=== PATIENT | female | born 1960 | race Caucasian/White ===

== ENCOUNTER 2017-11-26 18:00 | Emergency (ER) | payer BC, SELFPAY ==
[2017-11-26 18:05] VITALS: BP 170/97; PULSE 114; RESP 18; TEMP 36.4; O2SAT 100
--- NOTE | 2017-11-26 18:19 | ED.GENADUL_ITS ---
Discharge Plan Disposition Patient Disposition: HOME Condition: Good Discharge Details Chief Complaint: Cellulitis Clinical Impression: Cat scratch of face Primary Care Provider: Jaun Longoria ED Provider: Blayne Danielson Home Meds and New Rx's Prescriptions: New azithromycin 250 mg tablet See Label Instructions .ROUTE .COMPLEX Qty: 6 RF: 0 Continue multivitamin [Daily Vitamin] 1 EACH tablet 1 ea PO DAILY RF: 0 ibuprofen 800 MG tablet 800 mg PO TID RF: 0 coenzyme Q10 10 MG capsule 1 tab PO DAILY RF: 0 cyanocobalamin (vitamin B-12) [Vitamin B-12] 1,000 MCG tablet 1,000 mcg PO DAILY RF: 0 calcium carbonate-vitamin D3 1 EACH tablet 1 ea PO BID RF: 0 potassium 99 MG tablet 99 mg PO DAILY RF: 0 vitamin E 400 UNIT capsule 400 unit PO daily prn RF: 0 loratadine 10 MG tablet 10 mg PO DAILY Qty: 90 RF: 4 vitamin B complex 1 EACH capsule 1 ea PO DAILY RF: 0 ginkgo biloba leaf extract 120 MG capsule 2 tab PO DAILY RF: 0 triprolidine-pseudoephedrine [Wal-Act D Cold and Allergy] 1 EACH tablet 1 tab-cap PO TID PRN RF: 0 docosahexanoic acid 100 MG capsule 100 mg PO DAILY RF: 0 ferrous sulfate 325 MG tablet 325 mg PO BID Qty: 180 RF: 4 magnesium 250 MG tablet 250 mg PO DAILY Qty: 90 RF: 3 lisinopril-hydrochlorothiazide 1 EACH tablet 1 tab-cap PO DAILY Qty: 90 RF: 3 cyclobenzaprine 10 MG tablet 10 mg PO TID PRNQty: 270 RF: 1 omeprazole 40 MG capsule,delayed release(DR/EC) 40 mg PO BID Qty: 180 RF: 4 paroxetine HCl 40 MG tablet 40 mg PO DAILY Qty: 90 RF: 4 trazodone 50 MG tablet 50 mg PO HS Qty: 90 RF: 4 Discharge Instructions Instructions: Cat Scratch Disease (ED) Additional Instructions: Please take azithromycin as prescribed for cat scratch disease. Please follow- up with regular doctor next week for. call on Wednesday for an appointment. Return to the emergency department for worsening signs of infection or any other acute concerns. Medical Decision Making MDM Narrative Medical decision making narrative: Pleasant 57-year-old female who has a swollen upper lip following cat scratch at home. She is at risk for Bartonella infection. Given initial dose of Bactrim, review of records reveal high dose of VICTORIA inhibitor, therefore was switched to Azithromycin. Pt is stable appropriate appropriate for outpatient management. I discussed return precautions to the ER with her. HPI - General Adult General Mode of arrival: ambulatory . Date/Time Provider Initiated Documentation: 11/26/17 18:00 . Limitations to Documentation: no limitations . Information obtained by: patient . HPI Narrative: Upper lip infection. This is a 57-year-old female who has a number of immunized cats. She was scratched in her upper lip by a cat last night on the inner mucosal surface. Over the course of the day today she developed the gradual onset of mild to moderate upper lip swelling and mild discomfort. It is nonradiating, constant, without significant exacerbating or ameliorating factors. She has had no difficulty swallowing or speaking. No swelling within the mouth. She states that she requires a tetanus booster. Related Data Home Medications Medication Instructions Recorded Confirmed calcium carbonate-vitamin D3 1 ea PO BID 06/18/14 coenzyme Q10 1 tab PO DAILY 06/18/14 cyanocobalamin (vitamin B-12) 1,000 mcg PO DAILY 06/18/14 [Vitamin B-12] ginkgo biloba leaf extract 2 tab PO DAILY 06/18/14 ibuprofen 800 mg PO TID tab-cap 06/18/14 loratadine 10 mg PO DAILY #90 tab-cap 06/18/14 multivitamin [Daily Vitamin] 1 ea PO DAILY 06/18/14 potassium 99 mg PO DAILY 06/18/14 vitamin B complex 1 ea PO DAILY 06/18/14 11/26/17 vitamin E 400 unit PO daily prn 06/18/14 11/26/17 docosahexanoic acid 100 mg PO DAILY 06/05/15 triprolidine-pseudoephedrine 1 tab-cap PO TID PRN tab-cap 06/05/15 11/26/17 [Wal-Act D Cold and Allergy] Previous Rx's Medication Instructions Recorded azithromycin See Label Instructions .ROUTE 11/26/17 .COMPLEX #6 tab Allergies Allergy/AdvReac Type Severity Reaction Status Date / Time No Known Allergies Allergy Unverified 01/06/17 15:14 General Stated Complaint: Cellulitis LILA: 3 Review of Systems Review of Systems 6systems reviewed, otherwise no PFSH Family History Mother Diabetes Essential hypertension Cerebrovascular accident Father Essential hypertension Brother Essential hypertension Grandfather No problems noted. Grandfather Diabetes Essential hypertension Heart disease Cerebrovascular accident Grandmother Diabetes Cerebrovascular accident Grandmother Personal history of malignant neoplasm Social History Smoking/Tobacco Use Status: Never Surgical History Diagnostic Laproscopy LUMBAR DISC SURGERY Tonsillectomy and adenoidectomy Exam Const General: cooperative, healthy appearing and comfortable Orientation: alert, awake and oriented x3 HENMT Head: normal to inspection, normocephalic and atraumatic Face and sinus: other (Upper lip mildly swollen without asymmetry. No clear lacerations. No fluctuance) Neck Neck: normal visual inspection and full ROM Chest Chest: normal inspection of the chest and normal palpation of entire chest wall Resp Effort & Inspection: normal respiratory effort and able to speak in complete sentences Auscultation: clear to auscultation bilaterally Cardio Rate: regular rate Rhythm: regular rhythm Skin Rashes: no rashes Trauma: no lacerations or abrasions Neuro General: alert, awake and oriented x3 Extrem General: normal to inspection and full ROM Course Vital Signs Temperature 36.4 C L 11/26/17 18:05 Pulse 114 H 11/26/17 18:05 Respiratory Rate 18 11/26/17 18:05 Blood Pressure 170/97 H 11/26/17 18:05 Pulse Oximetry 100 11/26/17 18:05 Temperature 36.4 C L 11/26/17 18:05 Pulse 114 H 11/26/17 18:05 Respiratory Rate 18 11/26/17 18:05 Blood Pressure 170/97 H 11/26/17 18:05 Pulse Oximetry 100 11/26/17 18:05
[2017-11-26] MEDS: Sulfameth/Trimeth DS TAB 1 TAB (18:27)
[2017-11-26 18:34] VITALS: BP 170/97; PULSE 114; RESP 18; TEMP 36.4; O2SAT 100
== END 2017-11-26 18:34 | disposition home or self-care (01) ==
LOC: ER 18:48
PROVIDERS: Emergency Provider Emergency Medicine; PCP Family Medicine
DX: S00.81XA Abrasion of other part of head, initial encounter (principal); W55.03XA Scratched by cat, initial encounter; I10 Essential (primary) hypertension
CPT/HCPCS: 90471; 99284; 99283

== ENCOUNTER 2021-01-16 02:09 | Outpatient (CLI) | payer BC, SELFPAY ==
[2021-01-16 15:50] LABS: Anion Gap 10.8 mmol/L (3-11); BUN 12 mg/dL (7-18); CO2 26.2 mmol/L (21.0-32.0); CREATININE 1.1 mg/dL (0.55-1.02); Calcium 9.5 mg/dL (8.5-10.1); Calculated LDL 166 mg/dL (<100); Chloride 104 mmol/L (98-107); Cholesterol 259 mg/dL (<200); Estimated GFR 51.02 (mL/min/1.73m2); Glucose 91 mg/dL (74-106); HDL Cholesterol 58 mg/dL (40-60); Potassium 3.9 mmol/L (3.5-5.1); Sodium 141 mmol/L (136-145); Triglyceride 176 mg/dL (<150)
== END 2021-01-16 02:10 | disposition home or self-care (01) ==
LOC: LBO 02:09
PROVIDERS: PCP Family Medicine; Visit Provider Family Medicine
DX: Z00.00 Encounter for general adult medical examination without abnormal findings (principal); I10 Essential (primary) hypertension
CPT/HCPCS: 36415; 80048; 80061

== ENCOUNTER 2021-04-23 16:23 | Outpatient (REF) | payer BC, SELFPAY ==
--- NOTE | 2021-04-23 15:45 | PAPFT_PTH ---
PATIENT: Anika Schroeder LOC: [facility] U#:[id number] AGE/SX: 60/F ROOM: RE04/23/[address]: Desiree Bello : 1960 BED: DIS: 04/23/2021 SPEC #: [id number] RECD: 04/23/21 18:24 STATUS: RYAN REJulia #: [id number] CABRERA: 04/23/21 15:[address]: Desiree Bello DEPT: [facility] Cytology RECD BY: Beata Diza Tissues: 1 - CX/ENDOCX FOR PAP SMEARS Procedures: PAP THIN PREP/UVM Screening HPV DNA PROBE Comments: [id number]
== END 2021-04-23 16:24 | disposition home or self-care (01) ==
LOC: LBN 16:23
PROVIDERS: PCP Family Medicine; Visit Provider Family Medicine
DX: Z12.4 Encounter for screening for malignant neoplasm of cervix (principal); Z11.51 Encounter for screening for human papillomavirus (HPV)
CPT/HCPCS: 88142; 87624

== ENCOUNTER 2021-05-15 00:53 | Outpatient (CLI) | payer BC, SELFPAY ==
--- NOTE | 2021-05-15 07:45 | DI.MAMMO_ITS ---
Exam(s) MAMMO SCREENING EXAM: MAMMO SCREENING CLINICAL HISTORY: screening,z12.39. TECHNIQUE: Bilateral full field digital CC and MLO mammographic images were obtained with 3D tomosyn thesis and utilizing computer aided detection (CAD). COMPARISON: None. Last mammogram was apparently 2008 and not available. FINDINGS: There are no CAD designations In the right breast there is an asymmetric density-possible nodule measuring 3 x 3 millimeters locate d 5 cm in from the nipple on the 3D cc imaging. In the left breast there is asymmetric density similar location also located 5 cm in from nipple. Po ssibly significant. No malignant-appearing microcalcification groups is region nor elsewhere in [place] [address] There is no significant architectural distortion nor skin thickening-retraction. IMPRESSION: Bilateral areas which require spot compression and possible ultrasound. BI-RADS Category 0 - Assessment Incomplete: Need additional imaging evaluation Breast Density - Category B - Scattered areas of fibroglandular density Breast density Category C or D implies that the patient has dense breast tissue. Dense breast tissue can make it harder to find cancer on a mammogram. Dense breast tissue is also associated with an incr eased risk of breast cancer. This information about the result of the mammogram report was provided to the patient to raise their awareness. Use this report when you speak with the patient about their risks for breast cancer, which includes their family history. At that time, you may recommend additional screening tests (Ultrasoun d or MRI) as these tests may add significant information. A negative radiographic report should not delay biopsy if a dominant or clinically suspicious mass is present. Up to ten percent of cancers are not identified on mammography. A negative report may reinforce clinical impression. Adenosis and dense breasts may obscure an underlying neoplasm. False positive reports average 6 to 10%. Patient will receive a letter notifying them of these results.
== END 2021-05-15 01:13 ==
PROVIDERS: PCP Family Medicine; Visit Provider Family Medicine
DX: Z12.31 Encounter for screening mammogram for malignant neoplasm of breast (principal); R92.8 Other abnormal and inconclusive findings on diagnostic imaging of breast
CPT/HCPCS: 77063; 77067

== ENCOUNTER 2021-05-30 01:48 | Outpatient (CLI) | payer BC, SELFPAY ==
--- NOTE | 2021-05-30 | DI.MAMMO_ITS ---
Exam(s) MAMMO SCREEN CALL BACK BI EXAM: MAMMO SCREEN CALL BACK BI CLINICAL HISTORY: ASYMMETRIC DENSITY BILAT BREAST. TECHNIQUE: Bilateral spot mammographic images obtained with 3D tomosynthesisand utilizing computer a ided detection (CAD). . We have now found a prior mammogram from October 2008 for compared COMPARISON: October 2008. FINDINGS: Additional mammographic views performed todayrender this area less concerning.Appearance is similar t o the 2008 mammogram. IMPRESSION: Stable benign-appearing bilateral findings. No radiographic evidence of malignancy Appropriate follow-up is to keep this patient on a yearly mammogram schedule. The patient was informed of these findings and recommendations prior to leaving the department today. BI-RADS Category 2 - Benign Findings Breast Density - Category B - Scattered areas of fibroglandular density Breast density Category C or D implies that the patient has dense breast tissue. Dense breast tissue can make it harder to find cancer on a mammogram. Dense breast tissue is also associated with an incr eased risk of breast cancer. This information about the result of the mammogram report was provided to the patient to raise their awareness. Use this report when you speak with the patient about their risks for breast cancer, which includes their family history. At that time, you may recommend additional screening tests (Ultrasoun d or MRI) as these tests may add significant information. A negative radiographic report should not delay biopsy if a dominant or clinically suspicious mass is present. Up to ten percent of cancers are not identified on mammography. A negative report may reinforce clinical impression. Adenosis and dense breasts may obscure an underlying neoplasm. False positive reports average 6 to 10%. Patient will receive a letter notifying them of these results.
== END 2021-05-30 02:08 ==
PROVIDERS: PCP Family Medicine; Visit Provider Family Medicine
DX: Z12.31 Encounter for screening mammogram for malignant neoplasm of breast (principal)
CPT/HCPCS: 77063; 77067

== ENCOUNTER 2021-08-15 01:49 | Outpatient (CLI) | payer BC, SELFPAY ==
[2021-08-15 15:38] LABS: Abs Immature Grans 0.02 10^3/uL (0.0-0.06); Absolute Basophil Count 0.05 10^3/uL (0.0-0.2); Absolute Lymphocyte Count 2.41 10^3/uL (1.2-3.4); Absolute Monocyte Count 0.44 10^3/uL (0.1-0.8); Absolute Neutrophil Count 4.63 10^3/uL (1.2-6.7); Basophils % 0.6; Eosinophils % 6.2; HCT 40.1 % (36.0-46.0); HGB 13.3 g/dL (11.2-15.7); Immature Grans % 0.2; Lymphocytes % 29.9; MCH 30.8 pg (27.0-33.0); MCHC 33.2 % (32.0-36.0); MCV 93 fL (80-95); MPV 10.2 fL (8.0-11.0); Monocytes % 5.5; Neutrophils % 57.6; Platelet Count 338 10^3/uL (130-400); RBC 4.32 10^6/uL (3.93-5.22); RDW 12.2 % (11.7-14.6); RDW-SD 41.8 fL; WBC 8.05 10^3/uL (4.4-10.8)
[2021-08-15 16:29] LABS: COMMENT (LAB VIEW ONLY) 226.95 mg/dL; Microalb ug/mg Crea 7.9 ug/mg Cr
[2021-08-15 16:41] LABS: ALT 22 U/L (14-59); AST 18 U/L (15-37); Albumin 4.3 g/dL (3.4-5.0); Alkaline Phosphatase 79 U/L (46-116); Anion Gap 15.2 mmol/L (3-11); BUN 12 mg/dL (7-18); Bilirubin, Direct 0.1 mg/dL (0.0-0.2); Bilirubin, Total 0.3 mg/dL (0.2-1.0); CO2 22.8 mmol/L (21.0-32.0); CREATININE 1.3 mg/dL (0.55-1.02); Calcium 9.8 mg/dL (8.5-10.1); Chloride 103 mmol/L (98-107); Estimated GFR 41.92 (mL/min/1.73m2); Glucose 92 mg/dL (74-106); Potassium 3.6 mmol/L (3.5-5.1); Sodium 141 mmol/L (136-145); TSH (W/Ref FT4) 1.76 uIU/mL (0.36-3.74); Total Protein 7.4 g/dL (6.4-8.2)
[2021-08-15 21:52] LABS: Rheumatoid Factor <8.6 IU/mL (<12.0)
[2021-08-18 10:15] LABS: Hepatitis C Ab w Rflx HCV PCR Negative (Negative)
== END 2021-08-15 01:50 | disposition home or self-care (01) ==
LOC: LBO 01:50
PROVIDERS: PCP Family Medicine; Visit Provider Family Medicine
DX: Z00.00 Encounter for general adult medical examination without abnormal findings (principal); E03.9 Hypothyroidism, unspecified; I10 Essential (primary) hypertension; R53.83 Other fatigue; N18.31 Chronic kidney disease, stage 3a; F10.20 Alcohol dependence, uncomplicated; Z11.59 Encounter for screening for other viral diseases; M19.041 Primary osteoarthritis, right hand; M19.042 Primary osteoarthritis, left hand
CPT/HCPCS: 36415; 80053; 80076; 86803; 82043; 82570; 84443; 85025; 86431

== ENCOUNTER 2023-05-14 19:57 | Outpatient (REF) | payer BC, SELFPAY ==
[2023-05-14 21:37] LABS: ALT 23 U/L (14-59); AST 15 U/L (15-37); Albumin 3.8 g/dL (3.4-5.0); Alkaline Phosphatase 85 U/L (46-116); BUN 13 mg/dL (7-18); Bilirubin, Total 0.2 mg/dL (0.2-1.0); Calcium 9.2 mg/dL (8.5-10.1); Calculated LDL 134 mg/dL (<100); Chloride 106 mmol/L (98-107); Cholesterol 213 mg/dL (<200); Estimated GFR 64.49 (mL/min/1.73m2); Glucose 100 mg/dL (74-106); HDL Cholesterol 69 mg/dL (40-60); Potassium 3.9 mmol/L (3.5-5.1); Sodium 142 mmol/L (136-145); Total Protein 6.8 g/dL (6.4-8.2); Triglyceride 51 mg/dL (<150)
[2023-05-14 22:02] LABS: Vitamin D 25 Total 47.3 ng/mL (30-100)
== END 2023-05-14 19:58 | disposition home or self-care (01) ==
LOC: LBN 19:57
PROVIDERS: PCP Family Medicine; Visit Provider Family Medicine
DX: Z00.00 Encounter for general adult medical examination without abnormal findings (principal); I10 Essential (primary) hypertension; N18.31 Chronic kidney disease, stage 3a; Z13.6 Encounter for screening for cardiovascular disorders
CPT/HCPCS: 80053; 80061; 82306

== ENCOUNTER 2024-07-01 16:27 | Emergency (ER) | payer BC, SELFPAY ==
[2024-07-01 16:32] VITALS: BP 136/78; PULSE 89; RESP 18; TEMP 36.6; O2SAT 98
--- NOTE | 2024-07-01 16:45 | RT.EKG_ITS ---
APPROVED REPORT Exam: Resting ECG Reason for Exam: Chest pain Patient Location: E HR:67 bpm ECG Measurements Heart Rate 67 AXIS VA 136 P 59 QRSd 103 QRS -33 QT 436 T 49 QTc 460 Conclusion Sinus rhythm...normal P axis, V-rate 60- 99 Left axis deviation...QRS axis (-30,-90) Probable lateral infarct, old...Q>35mS, abnormal ST-T, V5-6 I aVL
--- NOTE | 2024-07-01 16:45 | DI.RAD_ITS ---
Exam(s) XR SHOULDER RT COMPLETE 2+V EXAM: XR SHOULDER RT COMPLETE 2+V CLINICAL HISTORY: right shoulder pain. TECHNIQUE: 2D digital imaging was performed. Five views. COMPARISON: No exams were available for comparison FINDINGS: BONES: No acute fracture is present. No bony destructive lesion is seen. Mild spurring at the greate r tuberosity. JOINTS: No dislocation present. Mild degenerative changes of the AC joint. SOFT TISSUE: Normal. IMPRESSION: No acute abnormality. DATA REPOSITORY: RADIATION DOSE DELIVERED:
--- NOTE | 2024-07-01 16:45 | DI.RAD_ITS ---
Exam(s) XR CHEST 2V PA LATERAL EXAM: XR CHEST 2V PA LATERAL CLINICAL HISTORY: chest pain TECHNIQUE: 2D digital imaging was performed. Two views. COMPARISON: No exams were available for comparison FINDINGS: HEART: Normal size. Aorta: Not dilated. PULMONARY VASCULATURE: Normal. MEDIASTINUM: Unremarkable. LUNGS: No infiltrate or pulmonary edema. Mild fibrotic changes. PLEURAL SPACE: No pleural effusion or pneumothorax. BONE:Osteophytes in the thoracic spine. SOFT TISSUES: Unremarkable. IMPRESSION: No acute abnormality. DATA REPOSITORY: RADIATION DOSE DELIVERED:
--- NOTE | 2024-07-01 16:57 | ED.GENADUL_ITS ---
Discharge Plan Disposition Patient Disposition: Home Discharge Details Clinical Impression: Bilateral shoulder pain, Chest pain, Neck pain Primary Care Provider: Desiree Bello ED Provider: Popeye Jin Home Meds and New Rx's Prescriptions: New cyclobenzaprine 10 mg tablet 10 mg PO TID PRNQty: 14 0RF No Action melatonin 10 mg capsule 20 mg PO HS PRN multivitamin [Daily Vitamin] 1 EACH tablet 1 ea PO DAILY ibuprofen 800 MG tablet 800 mg PO TID coenzyme Q10 10 MG capsule 1 tab PO DAILY cyanocobalamin (vitamin B-12) [Vitamin B-12] 1,000 MCG tablet 1,000 mcg PO DAILY calcium carbonate-vitamin D3 1 EACH tablet 1 ea PO BID potassium 99 MG tablet 99 mg PO DAILY vitamin E 400 UNIT capsule 400 unit PO daily prn vitamin B complex 1 EACH capsule 1 ea PO DAILY ginkgo biloba leaf extract 120 MG capsule 2 tab PO DAILY Wal-Act D Cold and Allergy 1 EACH tablet 1 tab-cap PO TID PRN ferrous sulfate 325 MG tablet 325 mg PO BID Qty: 180 magnesium 250 MG tablet 250 mg PO DAILY Qty: 90 lisinopril-hydrochlorothiazide 20-12.5 mg tablet 1 tab PO DAILY Qty: 90 3RF omeprazole 40 mg capsule,delayed release(DR/EC) 40 mg PO BID Qty: 180 3RF trazodone 100 mg tablet 100 mg PO HS Qty: 90 3RF amlodipine 5 mg tablet 5 mg PO DAILY Qty: 90 3RF paroxetine HCl 40 mg tablet 40 mg PO DAILY Qty: 90 3RF Discharge Instructions Instructions: Shoulder Pain ED Additional Instructions: You were seen in the emergency department for shoulder pain. We performed labs, EKG, chest x-ray, and x-rays of your shoulders that were unremarkable. Your potassium was mildly low and we gave you some here. Exact cause of your symptoms is not known. This could be nerve pain stemming from your neck or in your shoulders. You need to follow-up with your primary care doctor. You can take 1000 mg of Tylenol/acetaminophen every 6 hours for pain or discomfort. You can take 600 mg of ibuprofen every 6 hours for pain or discomfort. Take the muscle relaxers called cyclobenzaprine/Flexeril to help with pain as well but do not drive or operate machinery if you are going to take this medication as it will make you sleepy. If you develop worsening symptoms please return here. Referrals: Desiree Bello MD [Primary Care Provider] - 1 week HPI General Mode of arrival: ambulatory . Date/Time Provider Initiated Documentation: 07/01/24 16:40 . Limitations to Documentation: no limitations . Information obtained by: patient . HPI Narrative: This is a 64-year-old female history of hypertension, fibromyalgia who is now presenting with shoulder pain. Says for the last 3 weeks she has had left shoulder pain. Radiates down the left arm. This was actually getting better with no clear injury at any point. Pain with range of motion of the left shoulder. Said that this was almost gone but over the last week she has developed worsening right shoulder pain. Also pain with range of motion but this and no clear injury or trauma. Says that the pain also shoots down that right arm. Strength and sensation remains intact. She has chronic neck pain that she has had for years. She does not use IV drugs. No recent surgeries or procedures. No fevers or chills. No bowel or bladder incontinence or retention. No numbness tingling or weakness in the lower extremities. Related Data Home Medications ?Medication ?Instructions ?Recorded ?Confirmed calcium 600 mg (as 1 ea PO BID 06/18/14 07/01/24 carbonate)-vitamin D3 5 mcg (200 unit) tablet coenzyme Q10 10 mg capsule 1 tab PO DAILY 06/18/14 07/01/24 cyanocobalamin (vitamin B-12) 1,000 mcg PO DAILY 06/18/14 07/01/24 1,000 mcg tablet (Vitamin B-12) ginkgo biloba leaf extract 120 mg 2 tab PO DAILY 06/18/14 07/01/24 capsule ibuprofen 800 mg tablet 800 mg PO TID 06/18/14 07/01/24 multivitamin (Daily Vitamin tablet) 1 ea PO DAILY 06/18/14 07/01/24 potassium 99 mg tablet 99 mg PO DAILY 06/18/14 07/01/24 vitamin B complex 1 ea PO DAILY 06/18/14 07/01/24 vitamin E 268 mg (400 unit) capsule 400 unit PO daily prn 06/18/14 07/01/24 ferrous sulfate 325 mg (65 mg 325 mg PO BID #180 tab-caps 06/05/15 07/01/24 iron) tablet magnesium 250 mg tablet 250 mg PO DAILY #90 tab-caps 06/05/15 07/01/24 triprolidine-pseudoephedrine 2.5 1 tab-cap PO TID PRN 06/05/15 07/01/24 mg-60 mg tablet (Wal-Act D Cold and Allergy) lisinopril 20 1 tab PO DAILY #90 tab-caps 08/27/23 07/01/24 mg-hydrochlorothiazide 12.5 mg tablet omeprazole 40 mg capsule,delayed 40 mg PO BID #180 tab-caps 09/13/23 07/01/24 release trazodone 100 mg tablet 100 mg PO HS #90 tab-caps 12/14/23 07/01/24 amlodipine 5 mg tablet 5 mg PO DAILY #90 tabs 03/13/24 07/01/24 paroxetine HCl 40 mg tablet 40 mg PO DAILY #90 tab-caps 05/15/24 07/01/24 melatonin 10 mg capsule 20 mg PO HS PRN 05/24/24 07/01/24 cyclobenzaprine 10 mg tablet 10 mg PO TID PRN #14 tabs 07/01/24 Previous Rx's ?Medication ?Instructions ?Recorded lisinopril 20 1 tab PO DAILY #90 tab-caps 08/27/23 mg-hydrochlorothiazide 12.5 mg tablet omeprazole 40 mg capsule,delayed 40 mg PO BID #180 tab-caps 09/13/23 release trazodone 100 mg tablet 100 mg PO HS #90 tab-caps 12/14/23 amlodipine 5 mg tablet 5 mg PO DAILY #90 tabs 03/13/24 paroxetine HCl 40 mg tablet 40 mg PO DAILY #90 tab-caps 05/15/24 cyclobenzaprine 10 mg tablet 10 mg PO TID PRN #14 tabs 07/01/24 Allergies Allergy/AdvReac Type Severity Reaction Status Date / Time No Known Allergies Allergy Verified 07/01/24 16:36 General Stated Complaint: Orthopedic LILA: 3 Review of Systems Constitutional Constitutional: Denies chills, Denies fever(s) and Denies headache(s) Eyes Eyes: Denies change in vision ENT Ears, Nose, Mouth, and Throat: Denies headache(s) and Denies odynophagia Cardiovascular Cardiovascular: Denies chest pain and Denies dyspnea Respiratory Respiratory: Denies dyspnea Gastrointestinal Gastrointestinal: Denies abdominal pain, Denies diarrhea, Denies nausea, Denies odynophagia and Denies vomiting Genitourinary Genitourinary: Denies dysuria Musculoskeletal Musculoskeletal: Denies myalgias Comments: Bilateral shoulder pain Integumentary/Breasts Skin/Breast: Denies changing lesions Neurologic Neurologic: Denies behavioral changes and Denies headache(s) Psychiatric Psychiatric: Denies behavioral changes Endocrine Endocrine: Denies heat intolerance Hematologic/Lymphatic Hematologic/Lymphatic: Denies lymphadenopathy Exam Const General: cooperative Nutritional Appearance: average body habitus Orientation: alert, awake and oriented x3 HENMT Head: normal to inspection Ears: external ears normal Mouth: moist mucous membranes Eyes Pupils: PERRL EOM: EOM intact bilaterally and No nystagmus Neck Neck: full ROM and no tracheal deviation Chest Chest: normal inspection of the chest Resp Auscultation: clear to auscultation bilaterally Cardio Rate: regular rate Rhythm: regular rhythm GI Inspection: normal to inspection Palpation: soft, no guarding, not rigid and nontender Back/Spine/Pelvis Back: No no CVA tenderness Cervical Spine: No cervical spinal tenderness Thoracic/Lumbar Spine: thoracic and lumbar spine normal to inspection, No thoracic spinal tenderness and No lumbar spinal tenderness Skin General skin exam: no rashes or lesions noted Neuro General: patient alert, patient awake and patient oriented x3 Cranial Nerves: CN's II-XI intact bilaterally, PERRL and no nystagmus Cognition: normal cognition Motor: muscle tone normal throughout and strength 5/5 throughout Sensory Exam: no sensory deficits noted Extrem Other: Pain with range of motion to bilateral shoulders. Still able to fully range his shoulders. No overlying redness or warmth. Sensation and motor intact in the radial, ulnar, and median nerve distributions bilaterally. Compartments of the bilateral upper extremities are soft. Palpable radial and ulnar pulses bilaterally. There is no swelling to the arms. Course Vital Signs Vital signs: Vital Signs Temperature 36.6 C 07/01/24 16:32 Pulse 89 07/01/24 16:32 Respiratory Rate 18 07/01/24 16:32 Blood Pressure 136/78 07/01/24 16:32 Pulse Oximetry 98 07/01/24 16:32 Temperature 36.6 C 07/01/24 16:32 Pulse 89 07/01/24 16:32 Respiratory Rate 18 07/01/24 16:32 Blood Pressure 136/78 07/01/24 16:32 Pulse Oximetry 98 07/01/24 16:32 Oxygen Delivery Method Room Air 07/01/24 16:32 Oxygen Flow Rate 0 07/01/24 16:32 Medical Decision Making This is a 64-year-old female who presents with bilateral shoulder pain. Appears musculoskeletal in nature and does have pain with range of motion bilaterally. Could be referred pain from the neck. She does not have any red flag symptoms for cord compression or spinal epidural abscess and no role for emergent MRI. No history of trauma warranting emergent CT. No history of trauma to the shoulders. Pain primarily in the right shoulder presently and will get plain films to look for significant signs of osteoarthritis. Will get chest x-ray to make sure this is not referred pain from a rib fracture or pneumothorax. Doubt arrhythmia or ACS but will check EKG and cardiac enzymes to evaluate for these to make sure this is not referred cardiac pain. Will get broad labs to look for electrolyte or metabolic derangements that could be contributing. Pain could be due to simple muscle sprain or secondary to her fibromyalgia but this would be a diagnosis of exclusion after workup as above. Will await initial testing and response to IV analgesia and reevaluate. 636pm Labs imaging and EKG unremarkable. Unclear cause of pain but could be radiculopathy versus fibromyalgia versus muscle sprain. Would treat conservatively. Will discharge with primary care follow-up. Mild hypokalemia will replete. Differential Diagnosis Differential Diagnosis: a Medical Records Medical records reviewed: Yes I reviewed the patient's medical records. Imaging Data Radiologic Study: Attestation: I personally reviewed and interpreted this imaging study as f sonal: Imaging: X-Ray (chest) My impression: Unremarkable Radiologic Study #2: Attestation: I personally reviewed and interpreted this imaging study as follows: Imaging: X-Ray (shoulders bilaterally) My impression: Unremarkable Lab Data Lab results reviewed: Yes I reviewed the patient's lab results. Lab results narrative: Labs grossly unremarkable other than mild kalemia. This is repleted. ECG Data Attestation: I personally reviewed and interpreted this ECG (s) as follows: Prior ECG tracings: available for review Interpretation: Normal sinus rhythm with no ischemic changes. Normal axis. Normal ID intervals. No ST or T wave changes. Quality:SDOH Health Related Social Needs: Health related social needs feeling lonely/isolated (Z 60.8) PFSH All Active Problems (Updated 07/01/24 @ 18:37 by Popeye Jin MD) Neck pain (Acute) Chest pain (Acute) Bilateral shoulder pain (Acute) CKD stage G3a/A1, GFR 45-59 and albumin creatinine ratio <30 mg/g (Acute) Chronic diarrhea (Chronic) Essential hypertension (Acute) Fibromyalgia (Acute) disabled due to it; treated with TENS, trigger point injections, tylenol #3. Using high dose ibuprofen GERD (gastroesophageal reflux disease) (Acute) reports having had EGD with Dr. Bhandari at [facility]; Medical History Colitis collagenous colitis hx; resolved. Thyroid nodule Surgical History History of laparoscopy (~1984) ex lap for ovarian cyst, had adverse reaction to anesthesia. History of lumbar discectomy Status post tonsillectomy and adenoidectomy Family History Mother Diabetes Essential hypertension Stroke Heart disease Father Essential hypertension Diverticulitis Parkinson disease Brother Essential hypertension Stroke Grandfather Diabetes Essential hypertension Heart disease Stroke Grandmother Diabetes Stroke Grandmother Personal history of malignant neoplasm BREAST Brother Multiple sclerosis Social History Smoking/Tobacco Use Status: Never Second Hand Exposure: Yes Smoking risk assessment performed?: Yes Alcohol Intake: former Year quit: 2020 Drug use: Daily Substance use type: marijuana Counseling given: No Caregiver/Support person: No Household members: spouse Number of Children: 0 Communication Needs: Hard of Hearing Education Level: college Details: studied STEM for a few years Do you need help understanding health information?: Never current occupation: disabled due to fibromyalgia. Pets and animals: Yes Pets and animals: cat(s) Sexually active: No Do you think of yourself as: bisexual Current gender identity: female What is your relationship status?: How often do you talk on the phone with friends or family?: once per week Do you belong to any clubs or organized social groups?: no Panel score (0-1 are the most socially isolated patients): 1 What type of physical activity do you participate in: walking Duration: 45-60 minutes/day Frequency: daily Deepti/Denominational: None Special deepti needs: No Seatbelt use: always Drive intox or ride w/intox uke driver: No Do you feel safe at home: Yes Do you feel safe in your relationship?: Yes
[2024-07-01] MEDS: Ketorolac 30 MG/ML VIAL IVP (17:10)
[2024-07-01] MEDS: Cyclobenzaprine 10 MG TAB PO (17:10)
[2024-07-01] MEDS: Normal Saline 500 ML IV (17:16)
[2024-07-01 17:24] LABS: Abs Immature Grans 0.05 10^3/uL (0.0-0.06); Absolute Basophil Count 0.04 10^3/uL (0.0-0.2); Absolute Eosinophil Count 0.15 10^3/uL (0.0-0.7); Absolute Lymphocyte Count 1.25 10^3/uL (1.2-3.4); Absolute Monocyte Count 0.67 10^3/uL (0.1-0.8); Absolute Neutrophil Count 6.03 10^3/uL (1.2-6.7); Basophils % 0.5 %; Eosinophils % 1.8 %; HCT 35.5 % (36.0-46.0); Immature Grans % 0.6 %; Lymphocytes % 15.3 %; MCH 31.3 pg (27.0-33.0); MCHC 33.8 % (32.0-36.0); MCV 92 fL (80-95); MPV 9.8 fL (8.0-11.0); Monocytes % 8.2 %; Neutrophils % 73.6 %; Platelet Count 378 10^3/uL (130-400); RBC 3.84 10^6/uL (3.93-5.22); RDW 12.7 % (11.7-14.6); WBC 8.19 10^3/uL (4.4-10.8)
[2024-07-01 17:27] LABS: ESR 41 mm/hr (0-30)
[2024-07-01 17:39] LABS: ALT 140 U/L (14-59); AST 113 U/L (15-37); Albumin 2.9 g/dL (3.4-5.0); Alkaline Phosphatase 114 U/L (46-116); Anion Gap 12.6 mmol/L (3-11); BUN 12 mg/dL (7-18); Bilirubin, Total 0.8 mg/dL (0.2-1.0); CO2 22.4 mmol/L (21.0-32.0); CREATININE 0.9 mg/dL (0.55-1.02); Calcium 9.2 mg/dL (8.5-10.1); Chloride 103 mmol/L (98-107); Creatine Kinase 24 U/L (26-192); Estimated GFR 72.28 (mL/min/1.73m2); Glucose 100 mg/dL (74-106); Lipase 52 U/L (<78); Potassium 3.1 mmol/L (3.5-5.1); Sodium 138 mmol/L (136-145); Total Protein 6.8 g/dL (6.4-8.2); Troponin I 4 ng/L (<or=51)
--- NOTE | 2024-07-01 18:00 | DI.RAD_ITS ---
Exam(s) XR SHOULDER LT COMPLETE 2+V EXAM: XR SHOULDER LT COMPLETE 2+V CLINICAL HISTORY: pain. TECHNIQUE: 2D digital imaging was performed. Three views. COMPARISON: CR,XR XR SHOULDER RT COMPLETE 2+V from 07/01/2024 FINDINGS: BONES: No acute fracture is present. No bony destructive lesion is seen. JOINTS: No dislocation present. Mild spurring at the AC joint. Glenohumeral joint space is maintain ed. SOFT TISSUE: Normal. IMPRESSION: No acute abnormality. DATA REPOSITORY: RADIATION DOSE DELIVERED:
--- NOTE | 2024-07-01 18:12 | DI.VRAD_ITS ---
PROCEDURE INFORMATION: Exam: XR Chest Exam date and time: 07/01/2024 5:57 PM Age: 64 years old Clinical indication: Other: Chest pain TECHNIQUE: Imaging protocol: Radiologic exam of the chest. Views: 2 views. COMPARISON: No relevant prior studies available. FINDINGS: Lungs: Unremarkable. No consolidation. Pleural spaces: Unremarkable. No pleural effusion. No pneumothorax. Heart/Mediastinum: Unremarkable. No cardiomegaly. Bones/joints: Unremarkable. IMPRESSION: No evidence for acute abnormality in the chest. Dictated and Authenticated by: Merissa Dean MD. Orderin Davin Nye MD
--- NOTE | 2024-07-01 18:20 | DI.VRAD_ITS ---
PROCEDURE INFORMATION: Exam: XR Left Shoulder Exam date and time: 07/01/2024 6:07 PM Age: 64 years old Clinical indication: Other: Pain TECHNIQUE: Imaging protocol: Radiologic exam of the left shoulder. Views: 2 or more views. COMPARISON: CR XR CHEST 2V PA LATERAL 07/01/2024 5:57 PM FINDINGS: Bones/joints: Normal. Soft tissues: Normal. IMPRESSION: No evidence for acute abnormality. Dictated and Authenticated by: Merissa Dean MD. Orderin Davin Nye MD
--- NOTE | 2024-07-01 18:22 | DI.VRAD_ITS ---
PROCEDURE INFORMATION: Exam: XR Right Shoulder Exam date and time: 07/01/2024 6:01 PM Age: 64 years old Clinical indication: Other: Pain TECHNIQUE: Imaging protocol: Radiologic exam of the right shoulder. Views: 2 or more views. COMPARISON: CR XR CHEST 2V PA LATERAL 07/01/2024 5:57 PM FINDINGS: Bones/joints: Normal. Soft tissues: Normal. IMPRESSION: No evidence for acute abnormality. Dictated and Authenticated by: Merissa Dean MD. Orderin Davin Nye MD
[2024-07-01] MEDS: Potassium Chloride Liquid 20 MEQ PKT 40 MEQ PO (18:40)
[2024-07-01 18:53] VITALS: BP 126/91; PULSE 82; RESP 20; O2SAT 100
== END 2024-07-01 18:53 | disposition home or self-care (01) ==
PROVIDERS: Emergency Provider Student in an Organized Health Care Education/Training Program; PCP Family Medicine
DX: M25.512 Pain in left shoulder (principal); M25.511 Pain in right shoulder; M54.2 Cervicalgia; R07.9 Chest pain, unspecified; I12.9 Hypertensive chronic kidney disease with stage 1 through stage 4 chronic kidney disease, or unspecified chronic kidney disease; N18.30 Chronic kidney disease, stage 3 unspecified
CPT/HCPCS: 80053; 82550; 83690; 85652; 93005; 96374; 99284; 71046; 73030; 84484; 85025; 93010; J1885